=== PATIENT | female | born 1990 | race Caucasian/White ===

== ENCOUNTER 2017-02-21 21:16 | Emergency (ER) | payer MEDICAID, OTHER ==
[~2017-02-21] VITALS: Ht 170.2 cm; Wt 60.0 kg
[~2017-02-21 21:16] MED LIST: ANAP550T OR; PRENTAB72 PO; SENN1TAB11 PO
[2017-02-21 21:18] VITALS: BP 110/59; PULSE 83; RESP 16; TEMP 97.7; O2SAT 99
[2017-02-21] MEDS ORDERED: TETANUS/DIPHTHERIA TOXOID ADULT 0.5 ML VIAL IM ONE (22:15)
[2017-02-21] MEDS ORDERED: SODIUM CHLORIDE 0.9% FLUSH 10 ML FLUSH IV FLUSH PRN (22:15)
--- NOTE | 2017-02-21 22:25 | PD ---
HPI Chief Complaint: Edema Time Seen by Provider: 22:19 Travel History International Travel<30 days: No Contact w/Intl Traveler<30days: No Traveled to known affect area: No History of Present Illness HPI Patient comes in for evaluation of burning/stabbing pain over the dorsal aspect of her left hand proximally. Patient states she has a history of IV substance abuse had been clean until yesterday when she relapsed injecting heroin and cocaine. Patient's pain began approximally 4-5 hours ago when she began noticing pain and swelling dorsal aspect of her left hand is burning/stabbing like in nature and radiates proximally. Pain is worse with movement of her wrist and hand. Patient denies any fevers, chest pain, shortness of breath, nausea, vomiting, fevers, or doing anything for this prior to coming emergency department. Patient is uncertain if she is or her last tetanus shot. PFSH Past Medical History ADHD: No Asthma: No Autoimmune Disease: No Blood Disorders: No Anxiety: No Depression: Yes Cancer: No Cardiovascular Problems: No Diabetes: No Diminished Hearing: No Headaches: No Musculoskeletal: No Neurologic: No Psychiatric: No Reproductive: No Respiratory: No Migraines: No Seizures: No Thyroid Disease: No Ulcer: No Past Surgical History Appendectomy: No Cholecystectomy: No Other Surgery: No Social History Alcohol Use: No Tobacco Use: Yes Substance Use: Yes Allergies-Medications (Allergen,Severity, Reaction): Coded Allergies: No Known Allergies (Verified , 02/21/17) Reported Meds & Prescriptions Reported Meds & Active Scripts Active Keflex (Cephalexin) 500 Mg Cap 500 Mg PO Q6H 10 Days Clindamycin (Clindamycin HCl) 300 Mg Cap 300 Mg PO Q6H 10 Days Reported Latuda (Lurasidone) 20 Mg Tab 20 Mg PO DAILY Buspirone (Buspirone HCl) 10 Mg Tab 20 Mg PO BID [place] Carbonate 600 Mg Cap 600 Mg PO BID Review of Systems Except as stated in HPI: all other systems reviewed are Neg Physical Exam Narrative GENERAL: Well-developed, well nourished, in no acute distress, and non-ill appearing. SKIN: Mild erythematous, tender, and soft tissue swelling noted over the dorsal aspect left hand proximally. Tract trejo noted. There is no crepitus, fluctuation, or drainage. HEAD: Atraumatic. Normocephalic. EYES: Pupils equal and round. EOMI. No scleral icterus. No injection or drainage. ENT: No nasal bleeding or discharge. Mucous membranes pink and moist. NECK: Trachea midline. Supple. No nuclear rigidity. CARDIOVASCULAR: Radial pulses 2+, intact, and equal bilaterally. Capillary refill less than 2 seconds. RESPIRATORY: No accessory muscle use. No respiratory distress. MUSCULOSKELETAL: No obvious deformities. No clubbing. No cyanosis. No edema. Full range of motion, but the patient is hesitant with her left hand and wrist secondary to pain. Wrist: FROM and equal BL with passive flexion, extension, and pronation/supination. Capillary refill less than 2 seconds distal to injury and equal BL. FROM distal to injury and equal BL. Strength distal to injury equal BL. NV intact distal to injury. Flexion and extension of thumb equal BL. Equal strength and movement with abduction/adductions of BL fingers. Ink Technician strength equal BL. No tenderness to the anatomical snuffbox. NEUROLOGICAL: Awake and alert. No obvious cranial nerve deficits. Motor grossly within normal limits. Normal speech. PSYCHIATRIC: Appropriate mood and affect; insight and judgment normal. Data Data Last Documented VS Vital Signs Date Time Temp Pulse Resp B/P Pulse Ox O2 Delivery O2 Flow Rate FiO2 02/21/17 23:36 99 02/21/17 21:18 97.7 83 16 110/59 Room Air Orders Tetanus/Diphtheria Tox Adult (Tetanus/Di (02/21/17 22:15) Basic Metabolic Panel (Bmp) (02/21/17 22:13) Complete Blood Count With Diff (02/21/17 22:13) Iv Access Insert/Monitor (02/21/17 22:13) Ecg Monitoring (02/21/17 22:13) Oximetry (02/21/17 22:13) Sodium Chloride 0.9% Flush (Ns Flush) (02/21/17 22:15) Ed Urine Pregnancytest Poc (02/21/17 22:13) Hand, Complete ([id number]) (02/21/17 ) Ketorolac Inj (Toradol Inj) (02/21/17 23:00) Clindamycin Inj (Cleocin Inj) (02/21/17 23:00) Labs Laboratory Tests Test 02/21/17 22:30 White Blood Count 14.8 TH/MM3 Red Blood Count 4.24 MIL/MM3 Hemoglobin 13.0 GM/DL Hematocrit 37.5 % Mean Corpuscular Volume 88.5 FL Mean Corpuscular Hemoglobin 30.6 PG Mean Corpuscular Hemoglobin 34.6 % Concent Red Cell Distribution Width 13.7 % Platelet Count 238 TH/MM3 Mean Platelet Volume 8.6 FL Neutrophils (%) (Auto) 83.7 % Lymphocytes (%) (Auto) 12.3 % Monocytes (%) (Auto) 3.4 % Eosinophils (%) (Auto) 0.1 % Basophils (%) (Auto) 0.5 % Neutrophils # (Auto) 12.4 TH/MM3 Lymphocytes # (Auto) 1.8 TH/MM3 Monocytes # (Auto) 0.5 TH/MM3 Eosinophils # (Auto) 0.0 TH/MM3 Basophils # (Auto) 0.1 TH/MM3 CBC Comment AUTO DIFF Differential Total Cells 100 Counted Neutrophils % (Manual) 77 % Band Neutrophils % 4 % Lymphocytes % 14 % Monocytes % 4 % Basophils % 1 % Neutrophils # (Manual) 12.0 TH/MM3 Differential Comment FINAL DIFF MANUAL Toxic Vacuolation PRESENT Platelet Estimate NORMAL Platelet Morphology Comment NORMAL Red Cell Morphology Comment NORMAL Sodium Level 138 MEQ/L Potassium Level 3.9 MEQ/L Chloride Level 100 MEQ/L Carbon Dioxide Level 27.8 MEQ/L Anion Gap 10 MEQ/L Blood Urea Nitrogen 15 MG/DL Creatinine 0.95 MG/DL Estimat Glomerular Filtration 71 ML/MIN Rate Random Glucose 128 MG/DL Calcium Level 9.5 MG/DL [facility] Medical Decision Making Medical Screen Exam Complete: Yes Emergency Medical Condition: Yes Differential Diagnosis Abscess, cellulitis, retained foreign body, other Narrative Course Patient was seen and examined. Initial laboratory lodged states were ordered. After urine test was negative patient was given Toradol for pain and IV clindamycin. Patient was signed out to Dr. Soliz pending laboratory and radiological results. Please see her documentation for final diagnosis and disposition. Scripts Cephalexin (Keflex)500 Mg [id number] Mg PO Q6H 10 Days Ref 0 Prov:Graciela Soliz MD 02/21/17 Clindamycin 300 Mg [id number] Mg PO Q6H 10 Days Ref 0 Prov:Graciela Soliz MD 02/21/17 Dg Blackmon February 21, 2017 22:25
[2017-02-21 22:41] LABS: AUTOMATED NEUTROPHIL # 12.4 TH/MM3 (1.8-7.7); BASOPHIL # 0.1 TH/MM3 (0-0.2); BASOPHIL % 0.5 % (0.0-2.0); EOSINOPHIL % 0.1 % (0.0-4.0); HEMATOCRIT 37.5 % (35.0-46.0); LYMPH % 12.3 % (9.0-44.0); LYMPHOCYTE # 1.8 TH/MM3 (1.0-4.8); MEAN CELL VOLUME 88.5 FL (80.0-100.0); MEAN CORPUSCULAR HEMOGLOBIN 30.6 PG (27.0-34.0); MEAN CORPUSCULAR HGB CONC 34.6 % (32.0-36.0); MONO % 3.4 % (0.0-8.0); NEUT % 83.7 % (16.0-70.0); PLATELET COUNT 238 TH/MM3 (150-450); RED BLOOD COUNT 4.24 MIL/MM3 (4.00-5.30); RED CELL DISTRIBUTION WIDTH 13.7 % (11.6-17.2); WHITE BLOOD COUNT 14.8 TH/MM3 (4.0-11.0)
[2017-02-21 22:45] LABS: HEMO FLAGS AUTO DIFF
[2017-02-21] MEDS ORDERED: LITH600C PO (22:59)
[2017-02-21] MEDS ORDERED: BUSP10TA PO (22:59)
[2017-02-21] MEDS ORDERED: LURA20TA PO (22:59)
[2017-02-21] MEDS ORDERED: CLINDAMYCIN INJ 600 MG in SODIUM CHLORIDE 0.9% INJ 100 ML IV ONE (23:00)
[2017-02-21] MEDS ORDERED: KETOROLAC TROMETHAMINE 30 MG/ML (IVP) VIAL IV PUSH ONE (23:00)
--- NOTE | 2017-02-21 23:00 | PD ---
Data Data Last Documented VS Vital Signs Date Time Temp Pulse Resp B/P Pulse Ox O2 Delivery O2 Flow Rate FiO2 02/21/17 21:18 97.7 83 16 110/59 99 Room Air Orders Tetanus/Diphtheria Tox Adult (Tetanus/Di (02/21/17 22:15) Basic Metabolic Panel (Bmp) (02/21/17 22:13) Complete Blood Count With Diff (02/21/17 22:13) Iv Access Insert/Monitor (02/21/17 22:13) Ecg Monitoring (02/21/17 22:13) Oximetry (02/21/17 22:13) Sodium Chloride 0.9% Flush (Ns Flush) (02/21/17 22:15) Ed Urine Pregnancytest Poc (02/21/17 22:13) Hand, Complete ([id number]) (02/21/17 ) Ketorolac Inj (Toradol Inj) (02/21/17 23:00) Clindamycin Inj (Cleocin Inj) (02/21/17 23:00) Labs Laboratory Tests Test 02/21/17 22:30 White Blood Count 14.8 TH/MM3 Red Blood Count 4.24 MIL/MM3 Hemoglobin 13.0 GM/DL Hematocrit 37.5 % Mean Corpuscular Volume 88.5 FL Mean Corpuscular Hemoglobin 30.6 PG Mean Corpuscular Hemoglobin 34.6 % Concent Red Cell Distribution Width 13.7 % Platelet Count 238 TH/MM3 Mean Platelet Volume 8.6 FL Neutrophils (%) (Auto) 83.7 % Lymphocytes (%) (Auto) 12.3 % Monocytes (%) (Auto) 3.4 % Eosinophils (%) (Auto) 0.1 % Basophils (%) (Auto) 0.5 % Neutrophils # (Auto) 12.4 TH/MM3 Lymphocytes # (Auto) 1.8 TH/MM3 Monocytes # (Auto) 0.5 TH/MM3 Eosinophils # (Auto) 0.0 TH/MM3 Basophils # (Auto) 0.1 TH/MM3 CBC Comment AUTO DIFF Differential Total Cells 100 Counted Neutrophils % (Manual) 77 % Band Neutrophils % 4 % Lymphocytes % 14 % Monocytes % 4 % Basophils % 1 % Neutrophils # (Manual) 12.0 TH/MM3 Differential Comment FINAL DIFF MANUAL Toxic Vacuolation PRESENT Platelet Estimate NORMAL Platelet Morphology Comment NORMAL Red Cell Morphology Comment NORMAL Sodium Level 138 MEQ/L Potassium Level 3.9 MEQ/L Chloride Level 100 MEQ/L Carbon Dioxide Level 27.8 MEQ/L Anion Gap 10 MEQ/L Blood Urea Nitrogen 15 MG/DL Creatinine 0.95 MG/DL Estimat Glomerular Filtration 71 ML/MIN Rate Random Glucose 128 MG/DL Calcium Level 9.5 MG/DL [facility] Medical Record Reviewed: Yes Supervised Visit with DEEPA: No Interpretation(s) Vital Signs Date Time Temp Pulse Resp B/P Pulse Ox O2 Delivery O2 Flow Rate FiO2 02/21/17 21:18 97.7 83 16 110/59 99 Room Air Narrative Course During the course of the patients emergency department visit, the patients history, examination, and differential diagnosis were reviewed with the patient. The patient had IV access obtained and blood work sent for analysis. The patient's case was checked out to me by Dg. Please see his complete history and physical. The patient's case was checked out to me at the conclusion of his shift. He requested that I review the patient's laboratory studies and disposition the patient. Anticipated that the patient would be able to be discharged home on oral antibiotic. The patient was initially provided Toradol 30 mg IV for pain, clindamycin 600 mg IV for antibiotic coverage. The patient's tetanus was updated. The patients laboratory studies were reviewed and remarkable for a white count 14.8, hemoglobin 13, platelets 238 with 83.7 neutrophils, basic metabolic profile shows a glucose of 128. Radiology studies were reviewed and remarkable for a left hand x-ray that shows no signs of foreign body or osteomyelitis. No acute bony abnormality. The patient will be discharged home on clindamycin. The patient was instructed to use cool compresses on the area and elevate the hand frequently. The patient is resting comfortably and feels better, is alert and in no distress. The patients results and examination findings were discussed with the patient. The repeat examination is unremarkable and benign. The history, exam, diagnostic testing, and current condition do not suggest any significant pathology to warrant further testing, continued ED treatment, admission, or surgical evaluation at this point. The vital signs have been stable. The patient does not have uncontrollable pain, intractable vomiting, or other significant symptoms. The patient's condition is stable and appropriate for discharge. The patient will pursue further outpatient evaluation with a primary care physician or other designated or consulting physician as indicated in the discharge instructions. The patient expressed understanding and was agreeable with this plan. Diagnosis Primary Impression: Cellulitis of left hand Additional Impression: Contusion Qualified Code: S60.222A - Contusion of left hand, initial encounter Referrals: Primary Care Physician 2 days Patient Instructions: Cellulitis (ED), Contusion in Adults (ED), General Instructions Med/Other Pt SpecificInfo: Prescription(s) given Scripts Cephalexin (Keflex)500 Mg [id number] Mg PO Q6H 10 Days Ref 0 Prov:Graciela Soliz MD 02/21/17 Clindamycin 300 Mg [id number] Mg PO Q6H 10 Days Ref 0 Prov:Graciela Soliz MD 02/21/17 Disposition: 01 DISCHARGE HOME Condition: Stable Graciela Soliz MD February 21, 2017 22:59
--- NOTE | 2017-02-21 23:05 | RADRPT ---
EXAM DATE/TIME: 02/21/2017 22:52 [place] COMPARISON: No previous studies available for comparison. INDICATIONS : Left posterior hand swelling after needle stick last night. MEDICAL HISTORY : Substance abuse. SURGICAL HISTORY : None. ENCOUNTER: Initial ACUITY: 1 day PAIN SCORE: 3/10 LOCATION: Left posterior hand. FINDINGS: Three view examination of the left hand demonstrates no soft tissue swelling, dislocation, or fractur e. The carpal bones appear intact. The interphalangeal and metacarpophalangeal joints are intact. Bony mineralization is normal. No radiopaque foreign body. CONCLUSION: Unremarkable examination of the left hand. Will Banks Jr., MD on February 21, 2017 at 23:02 Board Certified Radiologist. This report was verified electronically.
[2017-02-21 23:16] LABS: BICARBONATE 27.8 MEQ/L (21.0-32.0); POTASSIUM 3.9 MEQ/L (3.5-5.1)
[2017-02-21 23:19] LABS: BANDS 4 % (0-6); BASOPHILS 1 % (0-2); PLATELET ESTIMATE SMEAR NORMAL (NORMAL); PLATELET MORPHOLOGY NORMAL (NORMAL); POLYS (SEG NEUTROPHILS) 77 % (16-70); SCAN/DIFF FINAL DIFF MANUAL; WBC DIFF SAMPLE 100
[2017-02-21 23:20] LABS: TOXIC VACUOLATION PRESENT (NONE SEEN)
[2017-02-21] MEDS ORDERED: CEPH-460 PO (23:31)
[2017-02-21] MEDS ORDERED: CLIN1CAP6 PO (23:31)
[2017-02-21 23:36] VITALS: O2SAT 99
== END 2017-02-22 00:19 | disposition home or self-care (01) ==
LOC: NEPE 21:16
DX: L03.114 Cellulitis of left upper limb (principal); S60.222A Contusion of left hand, initial encounter; X78.8XXA Intentional self-harm by other sharp object, initial encounter; Z72.0 Tobacco use
CPT/HCPCS: 73130; 80048; 84703; 85007; 85027; 90471; 90714; 96372; 96374; 99283; J1885